=== PATIENT | female | born 1950 | race Caucasian/White ===

== ENCOUNTER 2024-04-19 06:16 | Day surgery (SDC) | payer MEDICARE ==
[~2024-04-19] VITALS: Ht 152.4 cm; Wt 82.8 kg
[~2024-04-19 06:16] MED LIST: ALEN70TA82 PO; B-122500 PO; DORZ2SOL5 OU; ERGO500029 PO; GABA-284 PO; NOXI1TAB PO; PANT20TA6 PO; SIMV10TA21 PO; VITA500C24 PO; XALA0.007 OU; XIID5DRO OD
[2024-04-19] MEDS: LIDOCAINE 3.5 % 1ML OPHTH TOPICAL GEL OU ONE (06:47)
[2024-04-19] MEDS ORDERED: fentaNYL 100 MCG/2 ML INJECTION As Ordered ONE (06:58)
[2024-04-19] MEDS ORDERED: MIDAZOLAM INJ 2MG/2ML VIAL As Ordered ONE (06:58)
[2024-04-19] MEDS: LIDOCAINE 1% SDV 5ML VIAL As Ordered ONE (09:00)
[2024-04-19] MEDS: mitoMYcin 0.2 MG/VIAL KIT FOR OPHTHALMIC USE As Ordered ONE (09:00)
[2024-04-19] MEDS: POVIDONE-IODINE 5% OPHTH PREP SOL 30ML As Ordered ONE (09:00)
[2024-04-19] MEDS: TOBRADEX OPHTH OINT 3.5 GM As Ordered ONE (09:18)
[2024-04-19 09:30] VITALS: BP 143/85; TEMP 97.5; O2SAT 96
== END 2024-04-19 09:50 | disposition home or self-care (01) ==
LOC: M SDC 06:16
PROVIDERS: ATTEND Ophthalmology
DX: H40.1111 Primary open-angle glaucoma, right eye, mild stage (principal); E78.2 Mixed hyperlipidemia; K21.9 Gastro-esophageal reflux disease without esophagitis; E66.9 Obesity, unspecified; Z79.899 Other long term (current) drug therapy; Z90.49 Acquired absence of other specified parts of digestive tract; Z88.8 Allergy status to other drugs, medicaments and biological substances; Z88.6 Allergy status to analgesic agent; Z68.35 Body mass index [BMI] 35.0-35.9, adult
CPT/HCPCS: 0449T; 93005; C1783; J2250; J3010; J7315